=== PATIENT | female | born 1970 | race Caucasian/White ===

== ENCOUNTER 2019-03-28 02:33 | Emergency (ER) | payer OTHER ==
[2019-03-28 02:49] VITALS: BP 122/96; PULSE 83; TEMP 97.9; BMI 36.1
[2019-03-28] MEDS ORDERED: ONDANSETRON 4 MG/2 ML VIAL IVPUSH ONE (02:57)
[2019-03-28] MEDS ORDERED: SODIUM CHLORIDE 0.9% 500 ML INFUS.BAG IV ONE (02:59)
[2019-03-28] MEDS ORDERED: ACETAMINOPHEN 1000 MG/100 ML VIAL (NON FORMULARY) IVPB ONE (02:59)
--- NOTE | 2019-03-28 03:06 | PDOC ---
History of Present Illness - General Chief Complaint: Pain, Acute Stated Complaint: PAIN Time Seen by Provider: 03/28/19 02:46 History Source: Patient Exam Limitations: No Limitations - History of Present Illness Initial Comments: 03/28/19 03:00 Source: Patient HPI: 43yo F PMH gallstones, kidney stones (seen here 2014, only episode / dx) presenting to the ED complaining of right sided flank pain that occurred suddenly while she was doing the dishes at midnight. The pain is described as sharp, intermittent, radiating to left flank and unrelieved by any change in position. Patient did not take any pain medication [employer]. According to the pt when the pain is sharp she feels nauseated. Pt has experienced several episodes of NBNB vomiting (6-8x) - including during the interview. Three episode of non- bloody diarrhea yesterday (loose stool). Denies chest pain, SOB, fever, chills, dysuria or frequency. No recent travel or sick contacts. Endorses prior heartburn, never prolonged, no hx of peptic ulcers. LMP 02/17/19, no prior fibroids / polyps / cysts or abnormal PAPs. All: NKDA Meds: Denies PMH: Kidney stones, "pre diabetes" PSH: BTL SHx: Never smoker, occasional ETOH, denies illicits Past History - Travel Traveled outside of the country in the last 30 days: No Close contact w/someone who was outside of country & ill: No - Past Medical History Allergies/Adverse Reactions: Allergies Allergy/AdvReac Type Severity Reaction Status Date / Time No Known Allergies Allergy Verified 03/28/19 02:49 Home Medications: Ambulatory Orders Ibuprofen [Motrin -] 600 mg PO TID #20 tablet 11/04/13 Oxycodone HCl/Acetaminophen [Percocet 5-325 mg Tablet -] 1 combo PO Q6H PRN #14 tablet 11/04/13 Tamsulosin HCl [Flomax] 0.4 mg PO DAILY #7 capsule 11/04/13 - Reproductive History (#): 2 Para: 2 - Psycho Social/Smoking Cessation Hx Smoking History: Never smoked Hx Alcohol Use: Yes Drug/Substance Use Hx: No Review of Systems - Review of Systems Able to Perform ROS?: Yes Is the patient limited [place] proficient: Yes Constitutional: No: Chills, Diaphoresis, Fever, Weakness HEENTM: No: Recent change in vision, Nose Congestion, Throat Swelling Respiratory: No: Cough, Orthopnea, Shortness of Breath, Stridor, Wheezing Cardiac (ROS): No: Chest Pain, Edema, Irregular Heart Rate, Palpitations, Syncope, Chest Tightness ABD/GI: Yes: Diarrhea (one episode), Nausea, Vomiting. No: Constipated, Poor Appetite, Poor Fluid Intake : No: Burning, Dysuria, Frequency, Pain Musculoskeletal: Yes: Back Pain (L flank). No: Muscle Pain, Muscle Weakness Integumentary: No: Bruising, Pruritus, Rash Neurological: No: Headache, Numbness, Tingling, Weakness Endocrine: No: Increased Thirst, Increased Urine, Change in Weight Hematologic/Lymphatic: No: Anemia, Blood Clots, Easy Bleeding, Easy Bruising All Other Systems: Reviewed and Negative *Physical Exam - Vital Signs Last Vital Signs Temp Pulse Resp BP Pulse Ox 97.9 F 83 18 122/96 100 03/28/19 02:47 03/28/19 02:47 03/28/19 02:47 03/28/19 02:47 03/28/19 02:47 - Physical Exam Comments: 03/28/19 03:09 AFVSS WDWN, appears in pain, actively vomiting, cooperative MMM, EOMI, NCAT, PERLLA, trachea midline RRR, nls1s2, no murmurs CTABL, normal WOB, no wheezes / rales / rhonchi Soft, diffusely tender, more-so in epigastrium and L abdomen, +L CVA, +guarding , non-tender R side and lower abdomen 2+ radial and PT pulses No rashes or other lesions Alert and oriented, CN grossly intact, MAEE, normal gait ED Treatment Course - LABORATORY CBC & Chemistry Diagram: 03/28/19 03:25 03/28/19 03:25 Medical Decision Making - Medical Decision Making 03/28/19 03:11 48yo F with PMH gallstones and kidney stones presenting with acute L flank pain waking her from sleep. Patent afebrile with stable vitals, L abdominal tenderness, N/V, unable to find comfortable position. DDX includes but is not limited to: Ureterolithiasis, Pyelo, Gastroenteritis, Colitis, IBS, less likely r/o ACS, ectopic, DKA. -CBC, CMP, CP, Lipase -UA, Urine Preg, BGM -1L IVF -Tylenol IV 1g -EKG -Will give IV toradol after Upreg 03/28/19 04:01 -UA with 3+ blood, confirmed patient is not menstruating, however she is spotting -Negative Test -CTAP w/o contrast ordered, stone protocol -EKG with NSR, normal axis, normal intervals, no abnormal or ischemic morphologies 03/28/19 05:00 -Patient vastly improved s/p IVF and tylenol -CTAP read pending -Ordered for toradol and lidoderm patch -Hgb 8.0 and Hct 26.6 - Anemic compared with prior baseline, patient advised to f/u with PCP for workup -Labs otherwise unremarkable - no leukocytosis, no electrolyte derangements, normal LFTs, negative troponin 03/28/19 05:20 -CT demonstrating mild hydro, 4mm stone by UVJ, will pass spontaneously -Patient given return precautions, agreed to follow up with PCP / and discuss anemia - copies of labs and report provided Dispo: Home with PCP f/u Discharge - Discharge Information Problems reviewed: Yes Clinical Impression/Diagnosis: Kidney stone Anemia Qualifiers: Anemia type: unspecified type Qualified Code(s): D64.9 - Anemia, unspecified Condition: Improved Disposition: HOME - Admission No - Follow up/Referral Referrals: Asim Begum MD [Primary Care Provider] - - Patient Discharge Instructions Patient Printed Discharge Instructions: DI for Kidney Stones Additional Instructions: You were seen and evaluated in the ED for left flank pain. You were diagnosed with a kidney stone AND ANEMIA. You were provided with copies of your CT and laboratory results. Please continue to drink lots of water and take over the counter pain medication (Motrin) as directed on the bottle for your pain. You may have continued nausea and vomiting with pain, it is important to stay hydrated and keep ahead of the pain. Follow up with your primary care doctor within the next week. You were found to be ANEMIC (Hgb 8.0, Hct 26.6) you need to notify your doctor so this can be further evaluated. Please return to the Emergency Department for any new or concerning symptoms including but not limited to: persistent nausea and vomiting, inability to tolerate food or water by mouth, fevers or chills, as these may be signs of a serious infection. - Post Discharge Activity
[2019-03-28] MEDS ORDERED: ONDANSETRON 4 MG/2 ML VIAL ONE (03:40)
[2019-03-28] MEDS ORDERED: ACETAMINOPHEN INJECTION 100 ML IVPB ONE (03:40)
[2019-03-28 03:42] LABS: EPI CELLS 2.2 /HPF (0-5/HPF); HYALINE CASTS 3 /lpf (0-8); URINE APPEARANCE CLEAR; URINE BACTERIA 100.7 /hpf (NEGATIVE); URINE BILIRUBIN NEGATIVE (NEGATIVE); URINE COLOR YELLOW; URINE GLUCOSE (UA) NEGATIVE (NEGATIVE); URINE KETONE TRACE (NEGATIVE); URINE LEUK ESTERASE NEGATIVE (NEGATIVE); URINE NITRITE NEGATIVE (NEGATIVE); URINE PROTEIN NEGATIVE (NEGATIVE); URINE RBC 142 /hpf (0-4); URINE UROBILINOGEN 0.2 mg/dL (0.2-1.0); URINE WBC 4 /hpf (0-5)
[2019-03-28 04:02] LABS: BASO % 0.5 % (0-2.0); EOS % 0.6 % (0-4.5); HEMATOCRIT 26.6 % (32.4-45.2); MCHC 30.1 g/dl (32.0-36.0); MEAN CELL VOLUME 58.2 fl (80-96); MEAN PLT VOLUME 8.7 fl (7.5-11.1); NEUT % 79.9 % (42.8-82.8); PLATELET COUNT 307 K/MM3 (134-434); RBC 4.56 M/mm3 (3.60-5.2); RDW 19.2 % (11.6-15.6); WHITE BLOOD COUNT 8.4 K/mm3 (4.0-10.0)
[2019-03-28 04:05] LABS: MCH 17.5 pg (25.7-33.7)
--- NOTE | 2019-03-28 04:29 | PDOC ---
Attending Attestation - Resident Resident Name: Jonas Beltran - ED Attending Attestation I have performed the following: I have examined & evaluated the patient, The case was reviewed & discussed with the resident, I agree w/resident's findings & plan - HPI HPI: 03/28/19 04:57 Pt has left flank pain; with nausea and now with unconfortable feeling not allowing her to sleep. She has a hx of kidney stones. Pt has hx of tubal ligation. - Physicial Exam PE: 03/28/19 04:58 Agree with resident exam - Medical Decision Making 03/28/19 04:[address] pending. CBC shows anemia; however she's not tachy and she has a normal EKG and vitals. Chem is normal UA has no infection, but 3+ blood and she will follow up with her PMD Kwame
[2019-03-28 04:30] LABS: ALBUMIN 3.6 g/dl (3.4-5.0); BILIRUBIN,TOTAL 0.3 mg/dL (0.2-1); BLOOD UREA NITROGEN 16.5 mg/dL (7-18); CALCIUM 8.6 mg/dL (8.5-10.1); CREATININE 0.8 mg/dL (0.55-1.3); POTASSIUM 3.8 mmol/L (3.5-5.1); TOT PROT 7.8 g/dl (6.4-8.2)
[2019-03-28] MEDS ORDERED: KETOROLAC TROMETHAMINE 30 MG/1 ML VIAL IVPUSH ONE (04:57)
[2019-03-28] MEDS ORDERED: LIDOCAINE 5% TOPICAL PATCH TP ONE (04:57)
[2019-03-28 05:09] LABS: ANISOCYTOSIS 2+
[2019-03-28 05:10] LABS: PLATELET ESTIMATE ADEQUATE
[2019-03-28] MEDS ORDERED: LIDOCAINE 5% TOPICAL PATCH ONE (05:21)
[2019-03-28] MEDS ORDERED: KETOROLAC TROMETHAMINE 30 MG/1 ML VIAL ONE (05:21)
--- NOTE | 2019-03-28 15:54 | EKG ---
Test Reason : Blood Pressure : / mmHG Vent. Rate : 083 BPM Atrial Rate : 083 BPM P-R Int : 150 ms QRS Dur : 092 ms QT Int : 390 ms P-R-T Axes : 062 076 045 degrees QTc Int : 458 ms NORMAL SINUS RHYTHM WITH SINUS ARRHYTHMIA NORMAL ECG WHEN COMPARED WITH ECG OF 04-NOV-2013 13:26, NO SIGNIFICANT CHANGE WAS FOUND Confirmed by ALBA BENITEZ MD ([id number]) on 03/28/2019 3:53:38 PM Referred By: Confirmed By:ALBA BENITEZ MD
[2019-03-28] MEDS ORDERED: LIDOCAINE PATCH REMOVAL MC SCH (22:00)
== END 2019-03-28 06:08 | disposition home or self-care (01) ==
LOC: JER 02:33
PROC: 3E0333Z Introduction of Anti-inflammatory into Peripheral Vein, Percutaneous Approach (ICD-10-PCS; principal; 2019-03-28)
DX: N13.2 Hydronephrosis with renal and ureteral calculous obstruction (principal); D64.9 Anemia, unspecified; Z87.442 Personal history of urinary calculi; Z87.19 Personal history of other diseases of the digestive system
CPT/HCPCS: 36415; 74176-TC; 80053; 81003; 82550; 82962; 83690; 84484; 84703; 85025; 93005; 93010; 99283-25; J0131

== ENCOUNTER 2020-11-26 23:33 | Inpatient (IN) | payer OTHER ==
[2020-11-27 01:42] LABS: BASO % 0.6 % (0-2.0); EOS % 1.7 % (0-4.5); HEMATOCRIT 22.7 % (32.4-45.2); LYMPH % 33.9 % (8-40); MCHC 30.2 g/dl (32.0-36.0); MEAN CELL VOLUME 53.7 fl (80-96); MEAN PLT VOLUME 8.3 fl (7.5-11.1); MONO % 8.1 % (3.8-10.2); NEUT % 55.7 % (42.8-82.8); PLATELET COUNT 292 10^3/uL (134-434); RBC 4.23 M/mm3 (3.60-5.2); RDW 19.2 % (11.6-15.6); WHITE BLOOD COUNT 8.9 K/mm3 (4.0-10.0)
[2020-11-27 01:49] LABS: INR 0.98 (0.83-1.09); PROTHROMBIN TIME (PATIENT) 12.1 SEC (9.7-13.0)
[2020-11-27 01:50] LABS: MCH 16.2 pg (25.7-33.7)
[2020-11-27 01:51] LABS: HEMOGLOBIN 6.9 GM/dL (10.7-15.3)
[2020-11-27 01:52] LABS: ACTIVATED PTT 28.1 SECONDS (25.2-36.5)
[2020-11-27 02:02] LABS: ALBUMIN 3.4 g/dl (3.4-5.0); ANION GAP 9 MMOL/L (8-16); CALCIUM 8.2 mg/dL (8.5-10.1); CHLORIDE 108 mmol/L (98-107); CO2 22 mmol/L (21-32); SODIUM 139 mmol/L (136-145)
[2020-11-27 02:03] LABS: GLUCOSE,RANDOM 122 mg/dL (74-106)
[2020-11-27 02:05] LABS: CREATININE 0.6 mg/dL (0.55-1.3); SGOT/AST 22 U/L (15-37); SGPT/ALT 21 U/L (13-61)
[2020-11-27 02:07] LABS: BILIRUBIN,TOTAL 0.2 mg/dL (0.2-1); TOT PROT 7.8 g/dl (6.4-8.2)
[2020-11-27 02:09] LABS: ALK PHOS 167 U/L (45-117)
[2020-11-27 05:45] LABS: ANISOCYTOSIS 2+; MACROCYTOSIS 0; OVALOCYTE 1+; PLATELET ESTIMATE NORMAL; TARGET CELLS 1+
[2020-11-27 06:52] LABS: EOS % 2.1 % (0-4.5); HEMATOCRIT 21.3 % (32.4-45.2); MCHC 29.4 g/dl (32.0-36.0); MEAN CELL VOLUME 54.2 fl (80-96); MEAN PLT VOLUME 8.7 fl (7.5-11.1); MONO % 9.4 % (3.8-10.2); NEUT % 52.5 % (42.8-82.8); PLATELET COUNT 248 10^3/uL (134-434); RBC 3.93 M/mm3 (3.60-5.2); RDW 19.1 % (11.6-15.6); WHITE BLOOD COUNT 7.5 K/mm3 (4.0-10.0)
[2020-11-27 06:55] LABS: MCH 15.9 pg (25.7-33.7)
[2020-11-27 06:56] LABS: HEMOGLOBIN 6.3 GM/dL (10.7-15.3)
[2020-11-27 07:27] LABS: BILIRUBIN,TOTAL 0.3 mg/dL (0.2-1)
[2020-11-27 07:28] LABS: CALCIUM 7.9 mg/dL (8.5-10.1)
[2020-11-27 07:29] LABS: BLOOD UREA NITROGEN 12.1 mg/dL (7-18)
[2020-11-27 07:32] LABS: CREATININE 0.5 mg/dL (0.55-1.3)
[2020-11-27 10:23] LABS: BASO % 0.9 % (0-2.0); EOS % 1.8 % (0-4.5); HEMATOCRIT 24.2 % (32.4-45.2); HEMOGLOBIN 7.4 GM/dL (10.7-15.3); LYMPH % 30.6 % (8-40); MCHC 30.5 g/dl (32.0-36.0); MEAN PLT VOLUME 8.3 fl (7.5-11.1); NEUT % 57.7 % (42.8-82.8); PLATELET COUNT 261 10^3/uL (134-434); RBC 4.25 M/mm3 (3.60-5.2); RDW 19.6 % (11.6-15.6)
[2020-11-27 10:24] LABS: MCH 17.4 pg (25.7-33.7)
[2020-11-27 14:17] VITALS: BMI 37.3
[2020-11-27] MEDS: LEVOTHYROXINE NA 25 MCG TABLET (FP) PO SCH (14:23)
[2020-11-27] MEDS: MULTIVITAMINS (DAILY MVI) TABLET (FP) PO SCH (14:23)
[2020-11-27 15:48] LABS: EPI CELLS >36 /uL (0-25.1); HYALINE CASTS 2 /uL (0-3.1); PH,URINE 6.5 (5.0-8.0); URINE APPEARANCE CLOUDY; URINE BACTERIA 2685 /uL (0-1359); URINE BILIRUBIN NEGATIVE (NEGATIVE); URINE COLOR YELLOW; URINE GLUCOSE (UA) NEGATIVE (NEGATIVE); URINE KETONE NEGATIVE (NEGATIVE); URINE LEUK ESTERASE 2+ (NEGATIVE); URINE NITRITE NEGATIVE (NEGATIVE); URINE PROTEIN NEGATIVE (NEGATIVE); URINE RBC 29 /uL (0-23.9); URINE WBC 13 /uL (0-25.8)
[2020-11-27 17:19] LABS: IRON SERUM 16 ug/dL (50-175); TOTAL IRON BINDING CAPACITY 504 ug/dL (250-450)
[2020-11-28] MEDS: LEVOTHYROXINE NA 25 MCG TABLET (FP) PO SCH (06:00)
[2020-11-28 09:37] LABS: BASO % 0.7 % (0-2.0); EOS % 1.7 % (0-4.5); HEMATOCRIT 25.7 % (32.4-45.2); HEMOGLOBIN 7.9 GM/dL (10.7-15.3); LYMPH % 28.2 % (8-40); MCHC 30.8 g/dl (32.0-36.0); MEAN CELL VOLUME 56.8 fl (80-96); MEAN PLT VOLUME 8.4 fl (7.5-11.1); MONO % 6.5 % (3.8-10.2); NEUT % 62.9 % (42.8-82.8); PLATELET COUNT 268 10^3/uL (134-434); RBC 4.53 M/mm3 (3.60-5.2); RDW 19.5 % (11.6-15.6); WHITE BLOOD COUNT 6.9 K/mm3 (4.0-10.0)
[2020-11-28 09:53] LABS: MCH 17.5 pg (25.7-33.7)
[2020-11-28 10:11] LABS: BLOOD UREA NITROGEN 11.1 mg/dL (7-18)
[2020-11-28 10:13] LABS: CALCIUM 8.1 mg/dL (8.5-10.1)
[2020-11-28 10:15] LABS: CREATININE 0.6 mg/dL (0.55-1.3)
[2020-11-28] MEDS: MULTIVITAMINS (DAILY MVI) TABLET (FP) PO SCH (10:23)
[2020-11-29] MEDS: LEVOTHYROXINE NA 25 MCG TABLET (FP) PO SCH (06:07)
[2020-11-29 08:10] LABS: HEMATOCRIT 25.8 % (32.4-45.2); HEMOGLOBIN 7.9 GM/dL (10.7-15.3); MCHC 30.5 g/dl (32.0-36.0); MEAN CELL VOLUME 57.3 fl (80-96); MEAN PLT VOLUME 8.8 fl (7.5-11.1); PLATELET COUNT 261 10^3/uL (134-434); RDW 19.3 % (11.6-15.6); WHITE BLOOD COUNT 7.3 K/mm3 (4.0-10.0)
[2020-11-29 08:11] LABS: MCH 17.5 pg (25.7-33.7)
[2020-11-29] MEDS: MULTIVITAMINS (DAILY MVI) TABLET (FP) PO SCH (09:10)
[2020-11-29] MEDS ORDERED: FERRIC CARBOXYMALTOSE 750 MG in SODIUM CHLORIDE 250 ML IVPB ONE (11:30)
[2020-11-29 14:29] VITALS: BP 134/72; PULSE 95; TEMP 98.1
== END 2020-11-29 15:47 | disposition home or self-care (01) | DRG 812 ==
LOC: JER 23:33 → JERBED 11-27 03:30 → J7W 11-27 13:41
PROVIDERS: ADMIT Internal Medicine; ATTEND Internal Medicine
PROC: 30233N1 Transfusion of Nonautologous Red Blood Cells into Peripheral Vein, Percutaneous Approach (ICD-10-PCS; principal; 2020-11-27)
DX: D50.9 Iron deficiency anemia, unspecified (principal); K92.2 Gastrointestinal hemorrhage, unspecified; N92.0 Excessive and frequent menstruation with regular cycle; E03.9 Hypothyroidism, unspecified; K64.9 Unspecified hemorrhoids; R19.5 Other fecal abnormalities; E66.9 Obesity, unspecified; Z68.37 Body mass index [BMI] 37.0-37.9, adult
CPT/HCPCS: 36415; 36430; 36511; 76856-TC; 80048; 80053; 81003; 82272; 82728; 83540; 83550; 84484; 84703; 85025; 85027; 85610; 85730; 86850; 86900; 86901; 86922; 93005; 93010; 99285-25; C9803; J1439; P9038; P9058; U0003; U0005

== ENCOUNTER 2022-09-04 22:36 | Observation (INO) | payer OTHER ==
[2022-09-04] MEDS ORDERED: FERROUS SO4 325 MG TABLET (FP) PO ONE (23:21)
[2022-09-05] MEDS ORDERED: FERROUS SO4 325 MG TABLET (FP) ONE (00:41)
[2022-09-05 00:44] LABS: MCHC 31.1 g/dl (32.0-36.0); MEAN CELL VOLUME 51.1 fl (80-96); MEAN PLT VOLUME 8.3 fl (7.5-11.1); PLATELET COUNT 280 10^3/uL (134-434); WHITE BLOOD COUNT 8.3 K/mm3 (4.0-10.0)
[2022-09-05 00:51] LABS: MCH 15.9 pg (25.7-33.7)
[2022-09-05 00:53] LABS: ADD RBC MORPHOLOGY YES; HEMOGLOBIN 6.5 GM/dL (10.7-15.3)
[2022-09-05 00:57] LABS: ALBUMIN 3.4 g/dl (3.4-5.0); CALCIUM 8.2 mg/dL (8.5-10.1); MAGNESIUM 1.9 mg/dL (1.8-2.4)
[2022-09-05 00:58] LABS: BLOOD UREA NITROGEN 17.4 mg/dL (7-18)
[2022-09-05 01:00] LABS: CREATININE 0.6 mg/dL (0.55-1.3)
[2022-09-05 01:02] LABS: BILIRUBIN,TOTAL 0.3 mg/dL (0.2-1)
[2022-09-05] MEDS ORDERED: BISACODYL 5 MG TABLET.DR (FP) PO PRN (03:17)
[2022-09-05] MEDS ORDERED: DOCUSATE SODIUM 100 MG CAPSULE (FP) PO PRN (03:18)
[2022-09-05 03:56] LABS: ANISOCYTOSIS 2+; MACROCYTOSIS 0; OVALOCYTE 2+; TEAR DROP CELLS 2+
[2022-09-05 04:27] VITALS: RESP 18; BMI 36.8
[2022-09-05 07:18] LABS: RETICULOCYTES 1.97 % (0.5-1.5)
[2022-09-05] MEDS: ASCORBIC ACID 500 MG TABLET (FP) PO SCH (09:15)
[2022-09-05] MEDS: FERROUS SO4 325 MG TABLET (FP) PO SCH (09:15)
[2022-09-05] MEDS ORDERED: FERROUS SO4 325 MG TABLET (FP) PO SCH (10:00)
[2022-09-05] MEDS ORDERED: ASCORBIC ACID 500 MG TABLET (FP) PO SCH (10:00)
[2022-09-05 15:03] LABS: HEMATOCRIT 27.7 % (32.4-45.2); HEMOGLOBIN 8.8 GM/dL (10.7-15.3); MCHC 31.9 g/dl (32.0-36.0); MEAN CELL VOLUME 56.7 fl (80-96); MEAN PLT VOLUME 8.5 fl (7.5-11.1); PLATELET COUNT 279 10^3/uL (134-434); RDW 29.6 % (11.6-15.6); WHITE BLOOD COUNT 7.4 K/mm3 (4.0-10.0)
[2022-09-05 15:13] LABS: MCH 18.1 pg (25.7-33.7)
[2022-09-05 15:28] LABS: IRON SERUM 358 ug/dL (50-175); TOTAL IRON BINDING CAPACITY 452 ug/dL (250-450)
[2022-09-06 08:25] LABS: HEMATOCRIT 28.1 % (32.4-45.2); MCHC 32.2 g/dl (32.0-36.0); MEAN CELL VOLUME 57.4 fl (80-96); MEAN PLT VOLUME 8.7 fl (7.5-11.1); PLATELET COUNT 253 10^3/uL (134-434); RDW 29.1 % (11.6-15.6); WHITE BLOOD COUNT 8.9 K/mm3 (4.0-10.0)
[2022-09-06 08:33] LABS: MCH 18.5 pg (25.7-33.7)
[2022-09-06 08:41] LABS: CALCIUM 8.4 mg/dL (8.5-10.1)
[2022-09-06 08:45] LABS: CREATININE 0.5 mg/dL (0.55-1.3)
[2022-09-06] MEDS: FERROUS SO4 325 MG TABLET (FP) PO SCH (09:28)
[2022-09-06] MEDS: ASCORBIC ACID 500 MG TABLET (FP) PO SCH (09:28)
[2022-09-06 13:38] VITALS: BP 147/73; PULSE 91; TEMP 98.2
[2022-09-08] MEDS ORDERED: FERROUS SO4 325 MG TABLET (FP) PO SCH (10:00)
[2022-09-08] MEDS ORDERED: ASCORBIC ACID 500 MG TABLET (FP) PO SCH (10:00)
== END 2022-09-06 15:18 | disposition home or self-care (01) ==
LOC: JER 22:36 → JERBED 09-05 02:24 → J7W 09-05 04:17
PROVIDERS: ADMIT Internal Medicine
PROC: 30233N1 Transfusion of Nonautologous Red Blood Cells into Peripheral Vein, Percutaneous Approach (ICD-10-PCS; principal; 2022-09-05)
DX: D50.9 Iron deficiency anemia, unspecified (principal); N20.0 Calculus of kidney; E07.9 Disorder of thyroid, unspecified; D25.9 Leiomyoma of uterus, unspecified; N92.0 Excessive and frequent menstruation with regular cycle; E66.01 Morbid (severe) obesity due to excess calories; Z68.36 Body mass index [BMI] 36.0-36.9, adult
CPT/HCPCS: 0241U-QW; 36415; 36430; 71046-TC-FY; 80048; 80053; 82272; 82728; 83021; 83540; 83550; 83735; 84439; 84443; 84484; 84703; 85025; 85027; 85045; 85660; 86850; 86900; 86901; 86922; 93005; 93010; 93306-TC; 97116-GP; 97161-GP; 99285-25; G0378; P9058

== ENCOUNTER 2022-10-06 04:34 | Inpatient (IN) | payer OTHER ==
[2022-10-01 17:19] VITALS: BMI 35.6
[2022-10-06] MEDS ORDERED: METHYLENE BLUE 50 MG/10 ML AMPUL ONE ×2 (10:19→13:16)
[2022-10-06] MEDS ORDERED: MIDAZOLAM HCL 2 MG/2 ML SINGLE DOSE VIAL ONE (10:34)
[2022-10-06] MEDS ORDERED: SUGAMMADEX SODIUM 200 MG/2 ML VIAL ONE (10:35)
[2022-10-06] MEDS ORDERED: ROCURONIUM BROMIDE 50 MG/5 ML SYRINGE ONE ×2 (10:35→11:26)
[2022-10-06] MEDS ORDERED: PROPOFOL 20 ML ONE ×2 (10:35→13:39)
[2022-10-06] MEDS ORDERED: LIDOCAINE HCL/PF 2% SDV 5ML VIAL ONE (10:41)
[2022-10-06] MEDS ORDERED: DEXAMETHASONE SOD PHOSPHATE 4 MG/1 ML VIAL ONE (10:41)
[2022-10-06] MEDS ORDERED: ONDANSETRON 4 MG/2 ML VIAL ONE (10:41)
[2022-10-06] MEDS ORDERED: ceFAZolin SODIUM 1 GM VIAL ONE (10:53)
[2022-10-06] MEDS ORDERED: ceFAZolin SODIUM 1 GM VIAL IVPB ONE (10:54)
[2022-10-06] MEDS ORDERED: TRANEXAMIC ACID 1000 MG/10 ML VIAL ONE (10:54)
[2022-10-06] MEDS ORDERED: HYDROmorphone HCl 2 MG/ML VIAL ONE (11:19)
[2022-10-06] MEDS ORDERED: KETOROLAC TROMETHAMINE 30 MG/1 ML VIAL ONE (11:19)
[2022-10-06] MEDS ORDERED: BUPIVACAINE HCL/PF 0.5% (5 MG/ML) 30 ML VIAL IJ ONE (11:44)
[2022-10-06] MEDS ORDERED: ONDANSETRON 4 MG/2 ML VIAL IVPUSH PRN (12:10)
[2022-10-06] MEDS ORDERED: PROMETHAZINE HCL 25 MG/1 ML VIAL IVPB PRN (12:10)
[2022-10-06] MEDS ORDERED: ACETAMINOPHEN 1000 MG/100 ML BAG IVPB PRN (12:10)
[2022-10-06] MEDS ORDERED: oxyCODONE HCL 5 MG TABLET PO PRN ×2 (12:10)
[2022-10-06] MEDS ORDERED: LACTATED RINGERS SOLUTION 1,000 ML IV SCH (12:15)
[2022-10-06] MEDS ORDERED: SEVOFLURANE 250 ML BTL ONE (13:14)
[2022-10-06] MEDS ORDERED: ACETAMINOPHEN 1000 MG/100 ML BAG IVPB ONE (14:10)
[2022-10-06] MEDS: IBUPROFEN 800 MG/8 ML IJ IVPB SCH ×2 (14:52→20:14)
[2022-10-07] MEDS: IBUPROFEN 800 MG/8 ML IJ IVPB SCH ×2 (02:10→08:35)
[2022-10-07 07:51] LABS: HEMATOCRIT 29.1 % (32.4-45.2); HEMOGLOBIN 9.2 GM/dL (10.7-15.3); MCHC 31.8 g/dl (32.0-36.0); MEAN CELL VOLUME 62.6 fl (80-96); MEAN PLT VOLUME 8.7 fl (7.5-11.1); PLATELET COUNT 280 10^3/uL (134-434); RBC 4.64 M/mm3 (3.60-5.2); RDW 32.6 % (11.6-15.6); WHITE BLOOD COUNT 9.6 K/mm3 (4.0-10.0)
[2022-10-07 07:55] LABS: MCH 19.9 pg (25.7-33.7)
[2022-10-07 08:24] LABS: CREATININE 0.5 mg/dL (0.55-1.3)
[2022-10-07 11:26] VITALS: RESP 16
[2022-10-07 11:30] VITALS: BP 136/80; PULSE 75; TEMP 98.6
[2022-10-07] MEDS ORDERED: IBUPROFEN 600 MG TABLET (FP) PO SCH (14:00)
== END 2022-10-07 12:25 | disposition home or self-care (01) | DRG 743 ==
LOC: J2C 04:34 → J3W 16:48
PROVIDERS: ADMIT Obstetrics & Gynecology; ATTEND Obstetrics & Gynecology
PROC: 0UT74ZZ Resection of Bilateral Fallopian Tubes, Percutaneous Endoscopic Approach (ICD-10-PCS; 2022-10-06)
PROC: 0TJB8ZZ Inspection of Bladder, Via Natural or Artificial Opening Endoscopic (ICD-10-PCS; 2022-10-06)
PROC: 0UT94ZZ Resection of Uterus, Percutaneous Endoscopic Approach (ICD-10-PCS; principal; 2022-10-06 09:00)
DX: N92.0 Excessive and frequent menstruation with regular cycle (principal); D64.9 Anemia, unspecified
CPT/HCPCS: 36415; 81025; 82565; 85027; 86850; 86900; 86901; 88307-TC; 94010; 94760; Q9968